=== PATIENT | female | born 1965 | race Caucasian/White ===

== ENCOUNTER → 2023-12-07 19:28 | Outpatient (REF) | payer OTHER, SELFPAY | LOC: MRI 19:28 | PROVIDERS: ATTENDING PHYSICIAN Specialist; FAMILY PHYSICIAN Physician Assistant Medical; REFERRING PHYSICIAN Psychiatry & Neurology Neurology | DX: G95.9 Disease of spinal cord, unspecified (principal); M54.16 Radiculopathy, lumbar region | CPT/HCPCS: 72156; 72158; A9575 ==

== ENCOUNTER → 2024-02-29 15:19 | Outpatient (REF) | payer OTHER, SELFPAY | LOC: HWRAD 15:19 | PROVIDERS: ATTENDING PHYSICIAN Orthopaedic Surgery; FAMILY PHYSICIAN Physician Assistant Medical | DX: S42.401A Unspecified fracture of lower end of right humerus, initial encounter for closed fracture (principal) | CPT/HCPCS: 73200 ==

== ENCOUNTER 2024-12-12 10:04 | Emergency (ER) | payer OTHER, SELFPAY ==
[2024-12-12 10:06] VITALS: BP 124/75
--- NOTE | 2024-12-12 10:50 | ED.GENMED ---
History of Present Illness
General
Chief Complaint: Musculo-Skeletal Complaint
Source: patient
Time Seen by Provider: 12/12/24 10:31
History of Present Illness
History of Present Illness:
58-year-old female presenting to the emergency department for evaluation after she excellently dropped a wooden cutting board onto her right foot yesterday evening, pain along the right great toe and going towards the second metatarsal. No other
injury sustained. Patient noted increased pain while ambulating but no other injuries or concerns. Patient did not take anything for pain prior to arrival to the ER this morning.
Past History
Past History
ED Past Medical History: Other (Fibromyalgia)
ED Past Surgical History: Orthopedic
Social History
Tobacco: Former smoker
Alcohol: Occasional
Drug: None
Personal:
Living: with family
Employment: Employed
Family History
Family History: Other
Review of Systems
Review of Systems
All Other Systems: ROS reviewed and negative except as documented in HPI and ROS
Phy Exam
Physical Exam
Physical Exam:
GENERAL: Alert , in no apparent distress
EYE: conjunctiva clear
Head: Normocephalic atraumatic
NECK: Supple,
ENT: mmm.
LUNGS: no acute respiratory distress
NEUROLOGICAL: Alert and oriented
SKIN: Warm and dry, skin intact.
MUSCULOSKELETAL: Right foot: Mild soft tissue swelling at the base of the first metatarsal and second metatarsal. Tenderness in this area. No breaks in the skin, no overlying erythema or ecchymosis. Easily palpable pedal pulse. Cap refill less
than 2 seconds and sensation is grossly intact to light touch. Remainder of extremity is otherwise warm and well-perfused.
PSYCH: Normal and appropriate interaction.
Scores
Heart Failure Risk
Heart Failure Risk Score: Not Applicable
Heart Score for Chest Pain Patients
STEMI patient?: Not applicable
Withdrawal Assessment of Alcohol
Withdrawal Assessment Completed?: Not applicable
Course
Orders/Labs/Results
Orders:
Orders
12/12/24 10:06
Foot, Right 3 View [CR Foot - Right Min 3 Views] Urgent
Comment:
Reason For Exam: foot pain
Vital Signs
Initial and Last Documented VS:
Initial Vital Signs
Temp Pulse Resp BP Pulse Ox
98.5 F 73 18 124/75 99
12/12/24 10:06 12/12/24 10:06 12/12/24 10:06 12/12/24 10:06 12/12/24 10:06
Last Documented Vital Signs
Temp Pulse Resp BP Pulse Ox
98.5 F 73 18 124/75 99
12/12/24 10:06 12/12/24 10:06 12/12/24 10:06 12/12/24 10:06 12/12/24 10:06
MDM/Problems Addressed
Differential Diagnosis Includes:
Contusion, sprain, fracture
MDM/Problems Addressed:
58-year-old female presenting to the ER for evaluation of right foot injury sustained when a wooden cutting board fell onto her foot last night. X-ray ordered does not show any acute fracture. Suspect contusion/soft tissue injury to be the most
likely diagnosis. NSAIDs/Tylenol as needed for pain. Ice and elevation. Stable for discharge home.
*Radiology
Radiology exam reviewed: preliminary read by ED provider (No acute fracture)
*Pulse Oximetry
Patient hypoxic: no
*Critical Care Note
Total Time (30-74mins, 75-104mins- exclusive of procedures): Not Applicable
ED Attending Note
-
Portions of this chart may have been created with voice recognition software.� Occasional wrong word or��sound alike� substitutions may have occurred due to the inherent limitations of voice recognition software.
Discharge Plan
Departure
Patient Disposition: Home (Routine Discharge)
Date of Disposition: 12/12/24
Time of Disposition: 10:50
Patient with high blood pressure during this ER visit?: No
Discharge Problem:
Foot pain, right
Instructions: Contusion (DC)
Prescriptions:
No Action
fluticasone propion-salmeterol [Advair Diskus] 1 EACH blister with device
1 ea IH DAILY
alprazolam 0.5 MG tablet
0.5 mg PO Q6HPRN PRN (Reason: anxiety)
pregabalin 100 MG capsule
150 mg PO BID
tramadol 50 MG tablet
50 mg PO HS PRN (Reason: pain)
ketorolac 10 MG tablet
10 mg PO Q6HPRN PRN (Reason: pain) Qty: 8 0RF
Interventions
Interventions:
*Risk Screen - Suicide Last Done: 12/12/24 10:06
*General Assessment Last Done: 12/12/24 10:06
*Neglect/Abuse Screening Last Done: 12/12/24 10:06
*ED COVID-19 Vaccine History Last Done: 12/12/24 10:06
*Nursing Disposition Last Done: 12/12/24 11:14
ED-Musculoskeletal Assessment Last Done: 12/12/24 11:13
Discharge Date and Time
Discharge Date/Time: 12/12/24 11:15
Print Language: ARABIC
== END 2024-12-12 11:15 | disposition home or self-care (01) ==
LOC: EMR 10:04
PROVIDERS: EMERGENCY PHYSICIAN Emergency Medicine; FAMILY PHYSICIAN Physician Assistant Medical
DX: M79.671 Pain in right foot (principal); W20.8XXA Other cause of strike by thrown, projected or falling object, initial encounter; M79.7 Fibromyalgia; Z87.891 Personal history of nicotine dependence
CPT/HCPCS: 99283; 73630

== ENCOUNTER → 2025-01-08 11:10 | Outpatient (REF) | payer OTHER, SELFPAY | LOC: HWWDC 11:10 | PROVIDERS: ATTENDING PHYSICIAN Orthopaedic Surgery; FAMILY PHYSICIAN Physician Assistant Medical | DX: Z12.31 Encounter for screening mammogram for malignant neoplasm of breast (principal); S52.021D Displaced fracture of olecranon process without intraarticular extension of right ulna, subsequent encounter for closed fracture with routine healing; S42.491D Other displaced fracture of lower end of right humerus, subsequent encounter for fracture with routine healing | CPT/HCPCS: 73200; 77063; 77067 ==

== ENCOUNTER → 2025-03-05 14:18 | Outpatient (REF) | payer OTHER, SELFPAY | LOC: WDC 14:18 | PROVIDERS: ATTENDING PHYSICIAN Physician Assistant Medical | DX: N63.10 Unspecified lump in the right breast, unspecified quadrant (principal) | CPT/HCPCS: 76642 ==

== ENCOUNTER → 2025-09-10 07:30 | Outpatient (REF) | payer OTHER, SELFPAY | LOC: PAVMRI 07:30 | PROVIDERS: ATTENDING PHYSICIAN Psychiatry & Neurology Neurology; FAMILY PHYSICIAN Physician Assistant Medical | DX: M54.16 Radiculopathy, lumbar region (principal) | CPT/HCPCS: 72158; A9575 ==